=== PATIENT | female | born 1935 | race Caucasian/White ===

== ENCOUNTER 2022-10-14 06:55 | Inpatient (IN) | payer BC, MEDICARE ==
[~2022-10-14] VITALS: Ht 157.5 cm; Wt 74.1 kg
[2022-10-14] MEDS ORDERED: SODIUM CHLORIDE 0.9% 1,000 ML IV ONE (07:15)
[2022-10-14] MEDS ORDERED: VANCOMYCIN 1G PREMIX 200 ML IV ONE (07:15)
[2022-10-14] MEDS ORDERED: PIPERACILLIN/TAZ 3.375G PREMIX 50 ML IV ONE (07:15)
[2022-10-14 08:05] LABS: CHLORIDE 106 mEq/L (98-107)
[2022-10-14 08:08] LABS: HEMATOCRIT. 45.5 % (36.0-48.0); HEMOGLOBIN. 15.2 g/dL (12.0-16.0); MEAN CORPUSCULAR HEMOGLOBIN 29.8 pg (28.0-32.0); MEAN CORPUSCULAR VOLUME 89.4 fL (81.0-99.0); MEAN PLATELET VOLUME 8.3 fl (7.4-10.4); PLATELET 186 x1000/uL (130-400); RED BLOOD CELL COUNT 5.08 mill/uL (4.2-5.4); RED CELL DISTRIBUTION WIDTH 14.1 % (11.6-14.6)
[2022-10-14 08:09] LABS: INR 1.1; PROTHROMBIN TIME 11.9 sec (9.6-11.0)
[2022-10-14] MEDS ORDERED: VANCOMYCIN 1,000 MG in DEXT 5% WATER 250 ML IV NR (08:30)
[2022-10-14 09:47] LABS: PLATELET ESTIMATE NORMAL
[2022-10-14] MEDS ORDERED: LIDOCAINE HCL/PF 1% 10 MG/ML 5ML VIAL ONE (10:12)
[2022-10-14 11:32] LABS: CREATINE KINASE 49 IU/L (26-192)
[2022-10-14 12:00] VITALS: BP 130/49
[2022-10-14 12:02] VITALS: BP 130/49
[2022-10-14] MEDS ORDERED: NALOXONE HCL 0.4MG/ML VIAL IV PRN (12:30)
[2022-10-14] MEDS: MULTIVITAMINS,THER W-MINERALS TABLET PO SCH (12:30)
[2022-10-14] MEDS ORDERED: GUAIFENESIN 200MG/10ML SUGAR FREE UDC PO PRN (12:30)
[2022-10-14] MEDS ORDERED: ACETAMINOPHEN 325MG TABLET PO PRN (12:30)
[2022-10-14] MEDS ORDERED: DOCUSATE SODIUM 100MG CAPSULE PO PRN (12:30)
[2022-10-14] MEDS ORDERED: CLONIDINE 0.1MG TABLET PO PRN (12:30)
[2022-10-14] MEDS ORDERED: TRAMADOL 50MG TABLET PO PRN (12:30)
[2022-10-14] MEDS ORDERED: MAGNESIUM/ALUMINUM HYDROXIDE/SIMETHICONE 30ML UDC PO PRN (12:30)
[2022-10-14] MEDS ORDERED: ONDANSETRON HCL 4MG/2ML INJ IV PRN (12:30)
[2022-10-14] MEDS: THIAMINE HCL 100MG TABLET PO SCH (12:30)
[2022-10-14] MEDS: SODIUM CHLORIDE 0.9% 1,000 ML IV SCH (13:52)
[2022-10-14] MEDS: CEFTRIAXONE 1,000 MG in DEXTROSE 5% WATER 50 ML IV SCH (13:52)
[2022-10-14] MEDS: ENOXAPARIN 30MG/0.3ML SYR SUBCUT SCH (13:53)
[2022-10-14] MEDS: AZITHROMYCIN 500 MG in DEXT 5% WATER 250 ML IV SCH (14:40)
[2022-10-14 16:00] VITALS: BP 113/59
[2022-10-14 20:00] VITALS: BP 120/50
[2022-10-15] VITALS: BP 109/53
[2022-10-15] MEDS: SODIUM CHLORIDE 0.9% 1,000 ML IV SCH (03:56)
[2022-10-15 04:00] VITALS: BP 123/64
[2022-10-15 04:10] LABS: CLARITY URINE TURBID (CLEAR); COLOR URINE YELLOW (YELLOW); KETONES URINE NEGATIVE (NEGATIVE); LEUKOCYTE ESTERASE URINE 3+ (NEGATIVE); NITRITE URINE NEGATIVE (NEGATIVE); OCCULT BLOOD URINE 1+ (NEGATIVE); PROTEIN URINE 2+ (NEGATIVE); SPECIFIC GRAVITY URINE 1.022 (1.005-1.030)
[2022-10-15 07:53] LABS: HEMOGLOBIN. 13.1 g/dL (12.0-16.0); MEAN CORPUSCULAR HEMOGLOBIN 29.8 pg (28.0-32.0); MEAN CORPUSCULAR VOLUME 88.9 fL (81.0-99.0); MEAN PLATELET VOLUME 8.6 fl (7.4-10.4); PLATELET 123 x1000/uL (130-400); RED BLOOD CELL COUNT 4.38 mill/uL (4.2-5.4); RED CELL DISTRIBUTION WIDTH 13.8 % (11.6-14.6)
[2022-10-15 08:00] VITALS: BP 105/63
[2022-10-15] MEDS: MULTIVITAMINS,THER W-MINERALS TABLET PO SCH (08:34)
[2022-10-15] MEDS: THIAMINE HCL 100MG TABLET PO SCH (08:34)
[2022-10-15] MEDS: FOLIC ACID 1MG TABLET PO SCH (08:34)
[2022-10-15 08:46] LABS: CHLORIDE 118 mEq/L (98-107)
[2022-10-15 08:55] LABS: HDL CHOLESTEROL 14 mg/dL (40-59); LDL CHOLESTEROL 51 mg/dL (5-100)
[2022-10-15] MEDS: SODIUM CHLORIDE 0.45% 1,000 ML IV SCH (10:45)
[2022-10-15 12:00] VITALS: BP 126/62
[2022-10-15] MEDS: ENOXAPARIN 30MG/0.3ML SYR SUBCUT SCH (13:29)
[2022-10-15] MEDS: CEFTRIAXONE 1,000 MG in DEXTROSE 5% WATER 50 ML IV SCH (13:31)
[2022-10-15] MEDS: AZITHROMYCIN 500 MG in DEXT 5% WATER 250 ML IV SCH (13:32)
[2022-10-15 20:00] VITALS: BP 116/56
[2022-10-15 21:06] LABS: PLATELET ESTIMATE DECREASED
[2022-10-16] VITALS (7 sets, daily range): BP systolic 112–132; BP diastolic 52–84
[2022-10-16] MEDS: SODIUM CHLORIDE 0.45% 1,000 ML IV SCH ×2 (00:05→13:29)
[2022-10-16 09:21] LABS: CHLORIDE 114 mEq/L (98-107)
[2022-10-16] MEDS: MULTIVITAMINS,THER W-MINERALS TABLET PO SCH (09:22)
[2022-10-16] MEDS: THIAMINE HCL 100MG TABLET PO SCH (09:22)
[2022-10-16] MEDS: FOLIC ACID 1MG TABLET PO SCH (09:22)
[2022-10-16] MEDS ORDERED: LEVOFLOXACIN 500MG PREMIX 100 ML IV NR (13:00)
[2022-10-16] MEDS: ENOXAPARIN 30MG/0.3ML SYR SUBCUT SCH (13:30)
[2022-10-17] VITALS: BP 164/81
[2022-10-17 04:00] VITALS: BP 149/70
[2022-10-17 06:46] LABS: HEMATOCRIT. 38.3 % (36.0-48.0); HEMOGLOBIN. 13.1 g/dL (12.0-16.0); MEAN CORPUSCULAR HEMOGLOBIN 30.1 pg (28.0-32.0); MEAN CORPUSCULAR VOLUME 88.2 fL (81.0-99.0); MEAN PLATELET VOLUME 8.1 fl (7.4-10.4); PLATELET 123 x1000/uL (130-400); RED BLOOD CELL COUNT 4.35 mill/uL (4.2-5.4); RED CELL DISTRIBUTION WIDTH 13.8 % (11.6-14.6)
[2022-10-17 07:25] LABS: CHLORIDE 110 mEq/L (98-107)
[2022-10-17 08:00] VITALS: BP 126/67
[2022-10-17 08:16] LABS: PLATELET ESTIMATE SLIGHTLY DECREASED
[2022-10-17] MEDS: FOLIC ACID 1MG TABLET PO SCH (09:40)
[2022-10-17] MEDS: THIAMINE HCL 100MG TABLET PO SCH (09:40)
[2022-10-17] MEDS: MULTIVITAMINS,THER W-MINERALS TABLET PO SCH (09:40)
[2022-10-17] MEDS: POTASSIUM CHLORIDE 20MEQ TABLET SR PO SCH (09:42)
[2022-10-17 12:00] VITALS: BP 101/62
[2022-10-17] MEDS: ENOXAPARIN 30MG/0.3ML SYR SUBCUT SCH (13:37)
[2022-10-17] MEDS: LEVOFLOXACIN 250MG PREMIX 50 ML IV SCH (13:38)
[2022-10-17 16:00] VITALS: BP 133/68
[2022-10-17] MEDS: SODIUM CHLORIDE 0.45% 1,000 ML IV SCH (16:33)
[2022-10-17 20:00] VITALS: BP 115/67
[2022-10-18] VITALS: BP 137/89
[2022-10-18 04:00] VITALS: BP 112/58
[2022-10-18] MEDS: SODIUM CHLORIDE 0.45% 1,000 ML IV SCH ×2 (06:56→18:46)
[2022-10-18 07:15] LABS: BASOPHILS % 0.2 % (0.0-2.0); EOSINOPHILS % 0.9 % (0.0-5.0); HEMATOCRIT. 37.3 % (36.0-48.0); HEMOGLOBIN. 12.8 g/dL (12.0-16.0); MEAN CORPUSCULAR VOLUME 87.6 fL (81.0-99.0); MONOCYTES % 10.3 % (2.0-8.0); NEUTROPHILS % 80.6 % (40.0-76.0); PLATELET 147 x1000/uL (130-400); RED BLOOD CELL COUNT 4.26 mill/uL (4.2-5.4); RED CELL DISTRIBUTION WIDTH 13.7 % (11.6-14.6)
[2022-10-18 07:33] LABS: CHLORIDE 111 mEq/L (98-107)
[2022-10-18 08:00] VITALS: BP 152/120
[2022-10-18] MEDS: POTASSIUM CHLORIDE 20MEQ TABLET SR PO SCH (08:00)
[2022-10-18] MEDS: FOLIC ACID 1MG TABLET PO SCH (08:00)
[2022-10-18] MEDS: THIAMINE HCL 100MG TABLET PO SCH (08:00)
[2022-10-18] MEDS: MULTIVITAMINS,THER W-MINERALS TABLET PO SCH (08:00)
[2022-10-18 12:00] VITALS: BP 136/49
[2022-10-18] MEDS: ENOXAPARIN 30MG/0.3ML SYR SUBCUT SCH (12:26)
[2022-10-18] MEDS: LEVOFLOXACIN 250MG PREMIX 50 ML IV SCH (12:26)
[2022-10-18 16:00] VITALS: BP 135/73
[2022-10-18 20:00] VITALS: BP 117/61
[2022-10-19] VITALS: BP 115/66
[2022-10-19 04:00] VITALS: BP 118/71
[2022-10-19 08:00] VITALS: BP 146/78
[2022-10-19] MEDS: MULTIVITAMINS,THER W-MINERALS TABLET PO SCH (08:58)
[2022-10-19] MEDS: FOLIC ACID 1MG TABLET PO SCH (08:58)
[2022-10-19] MEDS: SODIUM CHLORIDE 0.45% 1,000 ML IV SCH ×2 (08:58→21:25)
[2022-10-19] MEDS: POTASSIUM CHLORIDE 20MEQ TABLET SR PO SCH (08:58)
[2022-10-19] MEDS: THIAMINE HCL 100MG TABLET PO SCH (08:58)
[2022-10-19 12:00] VITALS: BP 148/59
[2022-10-19] MEDS: ENOXAPARIN 30MG/0.3ML SYR SUBCUT SCH (12:49)
[2022-10-19] MEDS: LEVOFLOXACIN 250MG PREMIX 50 ML IV SCH (12:49)
[2022-10-19 16:00] VITALS: BP 127/72
[2022-10-19 20:00] VITALS: BP 132/62
[2022-10-20] VITALS: BP 146/86
[2022-10-20 04:00] VITALS: BP_SYST 129; BP_SYST 92; BP_DIAS 55; BP_DIAS 65
[2022-10-20 08:00] VITALS: BP 139/60
[2022-10-20] MEDS: THIAMINE HCL 100MG TABLET PO SCH (09:16)
[2022-10-20] MEDS: FOLIC ACID 1MG TABLET PO SCH (09:16)
[2022-10-20] MEDS: MULTIVITAMINS,THER W-MINERALS TABLET PO SCH (09:16)
[2022-10-20] MEDS: POTASSIUM CHLORIDE 20MEQ TABLET SR PO SCH (09:16)
[2022-10-20 12:00] VITALS: BP 124/58
[2022-10-20] MEDS: SODIUM CHLORIDE 0.45% 1,000 ML IV SCH (13:14)
[2022-10-20] MEDS: ENOXAPARIN 30MG/0.3ML SYR SUBCUT SCH (13:14)
[2022-10-20] MEDS: LEVOFLOXACIN 250MG PREMIX 50 ML IV SCH (13:14)
[2022-10-20 16:00] VITALS: BP 126/59
[2022-10-20 17:35] LABS: BASOPHILS % 0.3 % (0.0-2.0); EOSINOPHILS % 1.1 % (0.0-5.0); HEMATOCRIT. 37.8 % (36.0-48.0); HEMOGLOBIN. 12.7 g/dL (12.0-16.0); LYMPHOCYTES % 7.9 % (20.0-50.0); MEAN CORPUSCULAR HEMOGLOBIN 29.4 pg (28.0-32.0); MEAN CORPUSCULAR VOLUME 87.8 fL (81.0-99.0); MEAN PLATELET VOLUME 7.5 fl (7.4-10.4); NEUTROPHILS % 83.7 % (40.0-76.0); PLATELET 338 x1000/uL (130-400); RED BLOOD CELL COUNT 4.31 mill/uL (4.2-5.4); RED CELL DISTRIBUTION WIDTH 13.4 % (11.6-14.6)
[2022-10-20 17:40] LABS: CHLORIDE 111 mEq/L (98-107)
[2022-10-20 20:00] VITALS: BP 125/68
[2022-10-21] VITALS: BP 133/60
[2022-10-21 04:00] VITALS: BP 118/66
[2022-10-21 08:00] VITALS: BP 123/68
[2022-10-21] MEDS: MULTIVITAMINS,THER W-MINERALS TABLET PO SCH (08:47)
[2022-10-21] MEDS: POTASSIUM CHLORIDE 20MEQ TABLET SR PO SCH (08:47)
[2022-10-21] MEDS: THIAMINE HCL 100MG TABLET PO SCH (08:47)
[2022-10-21] MEDS: FOLIC ACID 1MG TABLET PO SCH (08:47)
[2022-10-21 12:00] VITALS: BP 113/70
[2022-10-21] MEDS: ENOXAPARIN 30MG/0.3ML SYR SUBCUT SCH (13:15)
[2022-10-21] MEDS: LEVOFLOXACIN 250MG PREMIX 50 ML IV SCH (13:15)
[2022-10-21 16:00] VITALS: BP 117/53
[2022-10-21] MEDS: SODIUM CHLORIDE 0.45% 1,000 ML IV SCH (17:24)
[2022-10-21 20:00] VITALS: BP 110/51
[2022-10-22] VITALS: BP 144/85
[2022-10-22] MEDS: SODIUM CHLORIDE 0.45% 1,000 ML IV SCH ×2 (02:23→17:27)
[2022-10-22 04:00] VITALS: BP_SYST 130; BP_SYST 143; BP_DIAS 62; BP_DIAS 70
[2022-10-22 08:00] VITALS: BP 122/65
[2022-10-22] MEDS: POTASSIUM CHLORIDE 20MEQ TABLET SR PO SCH (09:43)
[2022-10-22] MEDS: MULTIVITAMINS,THER W-MINERALS TABLET PO SCH (09:43)
[2022-10-22] MEDS: FOLIC ACID 1MG TABLET PO SCH (09:43)
[2022-10-22] MEDS: THIAMINE HCL 100MG TABLET PO SCH (09:43)
[2022-10-22] MEDS: ENOXAPARIN 30MG/0.3ML SYR SUBCUT SCH (17:26)
[2022-10-22 20:00] VITALS: BP 123/60
[2022-10-23] VITALS: BP 102/84
[2022-10-23 01:33] VITALS: BP 102/84
[2022-10-23 04:00] VITALS: BP 122/67
[2022-10-23] MEDS: SODIUM CHLORIDE 0.45% 1,000 ML IV SCH (05:39)
[2022-10-23] MEDS: THIAMINE HCL 100MG TABLET PO SCH (09:20)
[2022-10-23] MEDS: MULTIVITAMINS,THER W-MINERALS TABLET PO SCH (09:20)
[2022-10-23] MEDS: FOLIC ACID 1MG TABLET PO SCH (09:20)
[2022-10-23] MEDS: POTASSIUM CHLORIDE 20MEQ TABLET SR PO SCH (09:21)
[2022-10-23 12:00] VITALS: BP 124/60
[2022-10-23] MEDS: ENOXAPARIN 30MG/0.3ML SYR SUBCUT SCH (13:36)
[2022-10-23 14:00] VITALS: BP 124/50
[2022-10-23 20:00] VITALS: BP 129/56
[2022-10-24] VITALS: BP 132/46
[2022-10-24 04:00] VITALS: BP_SYST 104; BP_SYST 134; BP_DIAS 58; BP_DIAS 75
[2022-10-24 08:00] VITALS: BP 124/48
[2022-10-24] MEDS: POTASSIUM CHLORIDE 20MEQ TABLET SR PO SCH (08:47)
[2022-10-24] MEDS: THIAMINE HCL 100MG TABLET PO SCH (08:47)
[2022-10-24] MEDS: FOLIC ACID 1MG TABLET PO SCH (08:47)
[2022-10-24] MEDS: SODIUM CHLORIDE 0.45% 1,000 ML IV SCH ×2 (08:47→21:46)
[2022-10-24] MEDS: MULTIVITAMINS,THER W-MINERALS TABLET PO SCH (08:47)
[2022-10-24 12:00] VITALS: BP 132/52
[2022-10-24] MEDS: ENOXAPARIN 30MG/0.3ML SYR SUBCUT SCH (12:37)
[2022-10-24 16:00] VITALS: BP 104/75
[2022-10-24 20:00] VITALS: BP 118/54
[2022-10-25] VITALS: BP 137/72
[2022-10-25 04:00] VITALS: BP 130/55
[2022-10-25 08:00] VITALS: BP 119/59
[2022-10-25] MEDS: SODIUM CHLORIDE 0.45% 1,000 ML IV SCH (09:54)
[2022-10-25] MEDS: MULTIVITAMINS,THER W-MINERALS TABLET PO SCH (09:54)
[2022-10-25] MEDS: POTASSIUM CHLORIDE 20MEQ TABLET SR PO SCH (09:54)
[2022-10-25] MEDS: FOLIC ACID 1MG TABLET PO SCH (09:54)
[2022-10-25] MEDS: THIAMINE HCL 100MG TABLET PO SCH (09:54)
[2022-10-25 12:00] VITALS: BP 130/60
[2022-10-25] MEDS: ENOXAPARIN 30MG/0.3ML SYR SUBCUT SCH (13:13)
[2022-10-25 16:00] VITALS: BP 115/51
[2022-10-25 20:00] VITALS: BP 113/44
[2022-10-26] VITALS: BP 108/48
[2022-10-26] MEDS: SODIUM CHLORIDE 0.45% 1,000 ML IV SCH (00:05)
[2022-10-26 04:00] VITALS: BP 108/46
[2022-10-26 06:59] LABS: BASOPHILS % 0.6 % (0.0-2.0); EOSINOPHILS % 1.4 % (0.0-5.0); HEMATOCRIT. 39.9 % (36.0-48.0); LYMPHOCYTES % 13.4 % (20.0-50.0); MEAN CORPUSCULAR HEMOGLOBIN 28.7 pg (28.0-32.0); MEAN CORPUSCULAR VOLUME 87.9 fL (81.0-99.0); MEAN PLATELET VOLUME 7.1 fl (7.4-10.4); MONOCYTES % 7.1 % (2.0-8.0); NEUTROPHILS % 77.5 % (40.0-76.0); PLATELET 486 x1000/uL (130-400); RED BLOOD CELL COUNT 4.54 mill/uL (4.2-5.4); RED CELL DISTRIBUTION WIDTH 13.9 % (11.6-14.6)
[2022-10-26 08:00] VITALS: BP 135/57
[2022-10-26 08:22] LABS: CHLORIDE 110 mEq/L (98-107)
[2022-10-26] MEDS: POTASSIUM CHLORIDE 20MEQ TABLET SR PO SCH (08:58)
[2022-10-26] MEDS: THIAMINE HCL 100MG TABLET PO SCH (08:58)
[2022-10-26] MEDS: MULTIVITAMINS,THER W-MINERALS TABLET PO SCH (08:58)
[2022-10-26] MEDS: FOLIC ACID 1MG TABLET PO SCH (08:58)
[2022-10-26 12:00] VITALS: BP 109/49
[2022-10-26] MEDS: ENOXAPARIN 30MG/0.3ML SYR SUBCUT SCH (14:24)
[2022-10-26 16:00] VITALS: BP_SYST 110; BP_SYST 115; BP_DIAS 52; BP_DIAS 53
[2022-10-26 20:00] VITALS: BP 108/46
[2022-10-27] VITALS: BP 109/49
[2022-10-27 04:00] VITALS: BP 115/46
[2022-10-27 08:00] VITALS: BP 99/49
[2022-10-27] MEDS: POTASSIUM CHLORIDE 20MEQ TABLET SR PO SCH (08:50)
[2022-10-27] MEDS: THIAMINE HCL 100MG TABLET PO SCH (08:50)
[2022-10-27] MEDS: MULTIVITAMINS,THER W-MINERALS TABLET PO SCH (08:50)
[2022-10-27] MEDS: FOLIC ACID 1MG TABLET PO SCH (08:50)
[2022-10-27] MEDS: ENOXAPARIN 30MG/0.3ML SYR SUBCUT SCH (12:12)
[2022-10-27 12:17] VITALS: BP 106/35
[2022-10-27 16:44] VITALS: BP 111/40
[2022-10-27 20:00] VITALS: BP 103/47
[2022-10-28] VITALS: BP 100/40
[2022-10-28 04:00] VITALS: BP 122/51
[2022-10-28 08:00] VITALS: BP 111/46
[2022-10-28] MEDS ORDERED: ENOXAPARIN 40MG/0.4ML SYR SUBCUT SCH (09:00)
[2022-10-28] MEDS: MULTIVITAMINS,THER W-MINERALS TABLET PO SCH (09:25)
[2022-10-28] MEDS: THIAMINE HCL 100MG TABLET PO SCH (09:25)
[2022-10-28] MEDS: FOLIC ACID 1MG TABLET PO SCH (09:26)
[2022-10-28] MEDS: POTASSIUM CHLORIDE 20MEQ TABLET SR PO SCH (09:26)
[2022-10-28 20:00] VITALS: BP 99/42
[2022-10-28] MEDS: NYSTATIN 100,000 UNITS/GM CREAM 15GM TOP SCH (21:19)
[2022-10-29] VITALS: BP 104/38
[2022-10-29 04:00] VITALS: BP 117/48
[2022-10-29 08:00] VITALS: BP 118/60
[2022-10-29] MEDS: POTASSIUM CHLORIDE 20MEQ TABLET SR PO SCH (08:28)
[2022-10-29] MEDS: THIAMINE HCL 100MG TABLET PO SCH (08:28)
[2022-10-29] MEDS: MULTIVITAMINS,THER W-MINERALS TABLET PO SCH (08:28)
[2022-10-29] MEDS: FOLIC ACID 1MG TABLET PO SCH (08:28)
[2022-10-29] MEDS: ENOXAPARIN 30MG/0.3ML SYR SUBCUT SCH (08:29)
[2022-10-29 12:00] VITALS: BP 105/53
[2022-10-29] MEDS: NYSTATIN 100,000 UNITS/GM CREAM 15GM TOP SCH ×2 (14:22→21:19)
[2022-10-29 16:00] VITALS: BP 119/49
[2022-10-29 20:16] VITALS: BP 113/50
[2022-10-30] VITALS: BP 115/43
[2022-10-30 04:00] VITALS: BP 120/50
[2022-10-30 08:28] VITALS: BP 108/51
[2022-10-30] MEDS: MULTIVITAMINS,THER W-MINERALS TABLET PO SCH (09:56)
[2022-10-30] MEDS: THIAMINE HCL 100MG TABLET PO SCH (09:56)
[2022-10-30] MEDS: FOLIC ACID 1MG TABLET PO SCH (09:56)
[2022-10-30] MEDS: ENOXAPARIN 30MG/0.3ML SYR SUBCUT SCH (09:57)
[2022-10-30] MEDS: POTASSIUM CHLORIDE 20MEQ TABLET SR PO SCH (09:58)
[2022-10-30] MEDS: NYSTATIN 100,000 UNITS/GM CREAM 15GM TOP SCH (09:59)
[2022-10-30 11:50] VITALS: BP 100/77
[2022-10-30] MEDS ORDERED: LACTULOSE 20G/30ML UDC PO NR (12:30)
[2022-10-30] MEDS ORDERED: NA PHOS,M-B/NA PHOS,DI-BA ENEMA 118ML PR PRN (12:30)
[2022-10-30 15:49] VITALS: BP 100/77
[2022-10-30 15:53] VITALS: BP 111/46
== END 2022-10-30 16:45 | DRG 871 ==
LOC: ER 07:04 → 7EST 10:33 → EDBEDREQ 10:36 → EDBEDREQTM 10:36 → ENRESERV 10:53
PROVIDERS: ADMIT Hospitalist; ATTEND Hospitalist
PROC: 02H633Z Insertion of Infusion Device into Right Atrium, Percutaneous Approach (ICD-10-PCS; principal; 2022-10-14)
PROC: B548ZZA Ultrasonography of Superior Vena Cava, Guidance (ICD-10-PCS; 2022-10-14)
DX: A41.59 Other Gram-negative sepsis (principal); E43 Unspecified severe protein-calorie malnutrition; J18.9 Pneumonia, unspecified organism; G93.40 Encephalopathy, unspecified; N17.9 Acute kidney failure, unspecified; N39.0 Urinary tract infection, site not specified; R73.9 Hyperglycemia, unspecified; Z68.29 Body mass index [BMI] 29.0-29.9, adult
CPT/HCPCS: 36415; 36573; 71045; 80048; 80053; 80061; 81003; 82140; 82550; 83605; 83735; 84145; 84484; 85025; 87077; 87186; 93005; 93970; 97165; 99291; A6261; C1725; J0456; J0696; J1650; J1956; J2543; J3370; J3490; J7030; J7060

== ENCOUNTER 2022-12-15 20:43 | Inpatient (IN) | payer BC ==
[~2022-12-15] VITALS: Ht 165.1 cm; Wt 64.4 kg
[2022-12-15 22:07] LABS: BASOPHILS % 0.4 % (0.0-2.0); EOSINOPHILS % 0.9 % (0.0-5.0); HEMATOCRIT. 43.6 % (36.0-48.0); HEMOGLOBIN. 14.6 g/dL (12.0-16.0); LYMPHOCYTES % 14.7 % (20.0-50.0); MEAN CORPUSCULAR HEMOGLOBIN 29.6 pg (28.0-32.0); MEAN CORPUSCULAR VOLUME 88.4 fL (81.0-99.0); MEAN PLATELET VOLUME 7.7 fl (7.4-10.4); MONOCYTES % 9.1 % (2.0-8.0); NEUTROPHILS % 74.9 % (40.0-76.0); PLATELET 304 x1000/uL (130-400); RED BLOOD CELL COUNT 4.93 mill/uL (4.2-5.4); RED CELL DISTRIBUTION WIDTH 14.9 % (11.6-14.6)
[2022-12-15 22:10] LABS: CHLORIDE 108 mEq/L (98-107)
[2022-12-15 22:12] LABS: PROTHROMBIN TIME 10.3 sec (9.6-11.0)
[2022-12-15 22:19] LABS: CREATINE KINASE 655 IU/L (26-192)
[2022-12-15] MEDS ORDERED: SODIUM CHLORIDE 0.9% 500 ML IV ONE (22:45)
[2022-12-16] MEDS ORDERED: CLONIDINE 0.1MG TABLET PO PRN (04:45)
[2022-12-16] MEDS ORDERED: ONDANSETRON HCL 4MG/2ML INJ IV PRN (04:45)
[2022-12-16] MEDS ORDERED: GUAIFENESIN 200MG/10ML SUGAR FREE UDC PO PRN (04:45)
[2022-12-16] MEDS ORDERED: IPRATROPIUM/ALBUTEROL 0.5-3(2.5)MG/3ML NEB HHN PRN (04:45)
[2022-12-16] MEDS ORDERED: ACETAMINOPHEN 325MG TABLET PO PRN ×2 (04:45)
[2022-12-16] MEDS ORDERED: DOCUSATE SODIUM 100MG CAPSULE PO PRN (04:45)
[2022-12-16] MEDS ORDERED: CEFTRIAXONE 1 G PREMIX 50 ML IV SCH (06:00)
[2022-12-16] MEDS ORDERED: VANCOMYCIN 1G PREMIX 200 ML IV NR ×2 (06:15→06:30)
[2022-12-16 08:48] LABS: FOLIC ACID (FOLATE) SERUM 19.9 ng/mL (>5.38)
[2022-12-16 11:35] VITALS: BP 99/59
[2022-12-16 13:15] VITALS: BP 99/59
[2022-12-16 19:39] VITALS: BP 117/69
[2022-12-16] MEDS: FAMOTIDINE 20MG TABLET PO SCH (22:03)
[2022-12-16 23:39] VITALS: BP 106/46
[2022-12-17] MEDS: CEFTRIAXONE 1,000 MG in DEXTROSE 5% WATER 50 ML IV SCH (05:58)
[2022-12-17 06:50] LABS: BASOPHILS % 0.7 % (0.0-2.0); EOSINOPHILS % 4.2 % (0.0-5.0); HEMATOCRIT. 39.5 % (36.0-48.0); HEMOGLOBIN. 13.2 g/dL (12.0-16.0); MEAN CORPUSCULAR HEMOGLOBIN 29.7 pg (28.0-32.0); MEAN CORPUSCULAR VOLUME 88.5 fL (81.0-99.0); MEAN PLATELET VOLUME 7.9 fl (7.4-10.4); MONOCYTES % 9.7 % (2.0-8.0); NEUTROPHILS % 58.4 % (40.0-76.0); PLATELET 277 x1000/uL (130-400); RED BLOOD CELL COUNT 4.46 mill/uL (4.2-5.4); RED CELL DISTRIBUTION WIDTH 14.8 % (11.6-14.6)
[2022-12-17 07:18] LABS: CHLORIDE 110 mEq/L (98-107); HDL CHOLESTEROL 53 mg/dL (40-59); LDL CHOLESTEROL 92 mg/dL (5-100); T4 FREE 1.18 ng/dL (0.76-1.46)
[2022-12-17 08:06] VITALS: BP 136/62
[2022-12-17 11:24] LABS: CLARITY URINE TURBID (CLEAR); COLOR URINE YELLOW (YELLOW); KETONES URINE NEGATIVE (NEGATIVE); LEUKOCYTE ESTERASE URINE 3+ (NEGATIVE); NITRITE URINE POSITIVE (NEGATIVE); OCCULT BLOOD URINE 2+ (NEGATIVE); PH URINE 5.5 (4.5-8.0); PROTEIN URINE 1+ (NEGATIVE); SPECIFIC GRAVITY URINE 1.016 (1.005-1.030); UROBILINOGEN URINE 0.2 E.U./dL (0.2-1.0)
[2022-12-17 12:00] VITALS: BP 144/71
[2022-12-17] MEDS ORDERED: VANCOMYCIN 750MG PREMIX 150 ML IV SCH (12:00)
[2022-12-17 20:00] VITALS: BP 115/49
[2022-12-17] MEDS: FAMOTIDINE 20MG TABLET PO SCH (21:31)
[2022-12-18] VITALS (7 sets, daily range): BP systolic 105–146; BP diastolic 59–86
[2022-12-18 05:50] LABS: CHLORIDE 108 mEq/L (98-107)
[2022-12-18 05:58] LABS: PHOSPHORUS 3.7 mg/dL (2.5-4.9)
[2022-12-18 06:20] LABS: BASOPHILS % 0.5 % (0.0-2.0); EOSINOPHILS % 3.5 % (0.0-5.0); HEMATOCRIT. 37.7 % (36.0-48.0); HEMOGLOBIN. 12.7 g/dL (12.0-16.0); LYMPHOCYTES % 23.9 % (20.0-50.0); MEAN CORPUSCULAR HEMOGLOBIN 29.7 pg (28.0-32.0); MEAN CORPUSCULAR VOLUME 88.2 fL (81.0-99.0); MEAN PLATELET VOLUME 7.8 fl (7.4-10.4); MONOCYTES % 8.9 % (2.0-8.0); NEUTROPHILS % 63.2 % (40.0-76.0); PLATELET 270 x1000/uL (130-400); RED BLOOD CELL COUNT 4.28 mill/uL (4.2-5.4); RED CELL DISTRIBUTION WIDTH 14.9 % (11.6-14.6)
[2022-12-18] MEDS: CEFTRIAXONE 1,000 MG in DEXTROSE 5% WATER 50 ML IV SCH (06:28)
[2022-12-18] MEDS ORDERED: IPRATROPIUM BROMIDE (0.02%) 0.5MG/2.5ML NEB HHN PRN (11:15)
[2022-12-18] MEDS ORDERED: ALBUTEROL (0.083%) 2.5MG/3ML NEB HHN PRN (11:15)
[2022-12-18] MEDS: FAMOTIDINE 20MG TABLET PO SCH (21:18)
[2022-12-19] MEDS: CEFTRIAXONE 1,000 MG in DEXTROSE 5% WATER 50 ML IV SCH (06:31)
[2022-12-19 08:00] VITALS: BP 119/56
[2022-12-19 20:00] VITALS: BP 129/69
[2022-12-19] MEDS: FAMOTIDINE 20MG TABLET PO SCH (21:31)
[2022-12-20] MEDS: CEFTRIAXONE 1,000 MG in DEXTROSE 5% WATER 50 ML IV SCH (05:56)
[2022-12-20 07:38] LABS: HEMATOCRIT 39.8 % (36.0-48.0); MEAN CORPUSCULAR HEMOGLOBIN 30.8 pg (28.0-32.0); PLATELET 281 x1000/uL (130-400); RED BLOOD CELL COUNT 4.52 mill/uL (4.2-5.4); RED CELL DISTRIBUTION WIDTH 14.7 % (11.6-14.6)
[2022-12-20 08:00] VITALS: BP 144/58
[2022-12-20 08:14] LABS: CHLORIDE 105 mEq/L (98-107)
[2022-12-20 08:18] LABS: PHOSPHORUS 2.4 mg/dL (2.5-4.9)
[2022-12-20] MEDS: MAGNESIUM/ALUMINUM HYDROXIDE/SIMETHICONE 30ML UDC PO PRN (09:34)
[2022-12-20 14:00] VITALS: BP 123/67
[2022-12-20 16:00] VITALS: BP 115/70
[2022-12-20 20:04] VITALS: BP 136/51
[2022-12-20] MEDS: FAMOTIDINE 20MG TABLET PO SCH (22:07)
[2022-12-21] MEDS: CEFTRIAXONE 1,000 MG in DEXTROSE 5% WATER 50 ML IV SCH (05:44)
[2022-12-21 07:10] LABS: BASOPHILS % 0.5 % (0.0-2.0); EOSINOPHILS % 2.4 % (0.0-5.0); HEMATOCRIT. 39.3 % (36.0-48.0); HEMOGLOBIN. 13.3 g/dL (12.0-16.0); LYMPHOCYTES % 26.1 % (20.0-50.0); MEAN CORPUSCULAR VOLUME 88.8 fL (81.0-99.0); MEAN PLATELET VOLUME 7.7 fl (7.4-10.4); PLATELET 296 x1000/uL (130-400); RED BLOOD CELL COUNT 4.42 mill/uL (4.2-5.4); RED CELL DISTRIBUTION WIDTH 14.7 % (11.6-14.6)
[2022-12-21 07:35] LABS: CHLORIDE 107 mEq/L (98-107)
[2022-12-21 08:00] VITALS: BP 146/63
[2022-12-21] MEDS: MAGNESIUM/ALUMINUM HYDROXIDE/SIMETHICONE 30ML UDC PO PRN (15:17)
[2022-12-21 20:00] VITALS: BP 109/53
[2022-12-21] MEDS: FAMOTIDINE 20MG TABLET PO SCH (21:22)
[2022-12-22] VITALS: BP 147/72
[2022-12-22 00:30] VITALS: BP 147/72
[2022-12-22 04:00] VITALS: BP_SYST 107; BP_SYST 137; BP_DIAS 67
[2022-12-22 08:00] VITALS: BP 126/68
[2022-12-22 20:00] VITALS: BP 113/38
[2022-12-22] MEDS: NITROFURANTOIN 100MG M/M CAPSULE PO SCH (22:04)
[2022-12-22] MEDS: FAMOTIDINE 20MG TABLET PO SCH (22:04)
[2022-12-23 04:00] VITALS: BP 120/59
[2022-12-23 07:06] LABS: CHLORIDE 108 mEq/L (98-107)
[2022-12-23 07:13] LABS: BASOPHILS % 0.5 % (0.0-2.0); EOSINOPHILS % 3.4 % (0.0-5.0); HEMATOCRIT. 40.2 % (36.0-48.0); HEMOGLOBIN. 13.5 g/dL (12.0-16.0); LYMPHOCYTES % 31.3 % (20.0-50.0); MEAN CORPUSCULAR HEMOGLOBIN 30.1 pg (28.0-32.0); MEAN CORPUSCULAR VOLUME 89.8 fL (81.0-99.0); MEAN PLATELET VOLUME 7.7 fl (7.4-10.4); MONOCYTES % 8.7 % (2.0-8.0); NEUTROPHILS % 56.1 % (40.0-76.0); PLATELET 288 x1000/uL (130-400); RED BLOOD CELL COUNT 4.48 mill/uL (4.2-5.4); RED CELL DISTRIBUTION WIDTH 14.8 % (11.6-14.6)
[2022-12-23 08:00] VITALS: BP 151/60
[2022-12-23] MEDS: NITROFURANTOIN 100MG M/M CAPSULE PO SCH ×2 (08:10→22:00)
[2022-12-23 12:00] VITALS: BP 128/67
[2022-12-23 16:00] VITALS: BP 131/63
[2022-12-23 19:39] VITALS: BP 115/50
[2022-12-23] MEDS: FAMOTIDINE 20MG TABLET PO SCH (21:00)
[2022-12-23 23:53] VITALS: BP 112/64
[2022-12-24 04:00] VITALS: BP 121/56
[2022-12-24 06:15] LABS: BASOPHILS % 0.7 % (0.0-2.0); EOSINOPHILS % 2.2 % (0.0-5.0); HEMATOCRIT. 37.8 % (36.0-48.0); HEMOGLOBIN. 12.9 g/dL (12.0-16.0); LYMPHOCYTES % 28.6 % (20.0-50.0); MEAN CORPUSCULAR HEMOGLOBIN 30.1 pg (28.0-32.0); MEAN CORPUSCULAR VOLUME 88.1 fL (81.0-99.0); MEAN PLATELET VOLUME 7.6 fl (7.4-10.4); MONOCYTES % 8.4 % (2.0-8.0); NEUTROPHILS % 60.1 % (40.0-76.0); PLATELET 289 x1000/uL (130-400); RED BLOOD CELL COUNT 4.29 mill/uL (4.2-5.4)
[2022-12-24 06:18] LABS: CHLORIDE 106 mEq/L (98-107)
[2022-12-24] MEDS: NITROFURANTOIN 100MG M/M CAPSULE PO SCH ×2 (08:59→21:04)
[2022-12-24 20:00] VITALS: BP 110/60
[2022-12-24] MEDS: FAMOTIDINE 20MG TABLET PO SCH (21:04)
[2022-12-25] VITALS: BP 117/70
[2022-12-25 04:00] VITALS: BP 148/82
[2022-12-25 08:00] VITALS: BP 125/80
[2022-12-25] MEDS: NITROFURANTOIN 100MG M/M CAPSULE PO SCH ×2 (09:04→22:09)
[2022-12-25 12:00] VITALS: BP 101/45
[2022-12-25 16:00] VITALS: BP 104/44
[2022-12-25 20:00] VITALS: BP 111/50
[2022-12-25] MEDS: FAMOTIDINE 20MG TABLET PO SCH (22:09)
[2022-12-26] VITALS: BP 111/50
[2022-12-26 04:00] VITALS: BP 122/72
[2022-12-26 08:00] VITALS: BP 107/82
[2022-12-26] MEDS: NITROFURANTOIN 100MG M/M CAPSULE PO SCH ×2 (08:37→20:44)
[2022-12-26 11:57] VITALS: BP 105/43
[2022-12-26 16:00] VITALS: BP 110/48
[2022-12-26] MEDS: FAMOTIDINE 20MG TABLET PO SCH (20:44)
[2022-12-27] VITALS: BP 125/57
[2022-12-27 04:00] VITALS: BP 115/54
[2022-12-27 08:00] VITALS: BP 115/37
[2022-12-27 08:13] LABS: BASOPHILS % 0.5 % (0.0-2.0); EOSINOPHILS % 2.7 % (0.0-5.0); HEMATOCRIT. 39.5 % (36.0-48.0); HEMOGLOBIN. 13.1 g/dL (12.0-16.0); LYMPHOCYTES % 28.8 % (20.0-50.0); MEAN CORPUSCULAR HEMOGLOBIN 29.7 pg (28.0-32.0); MEAN CORPUSCULAR VOLUME 89.7 fL (81.0-99.0); MEAN PLATELET VOLUME 7.8 fl (7.4-10.4); PLATELET 287 x1000/uL (130-400); RED CELL DISTRIBUTION WIDTH 15.2 % (11.6-14.6)
[2022-12-27 08:21] LABS: CHLORIDE 108 mEq/L (98-107)
[2022-12-27] MEDS: NITROFURANTOIN 100MG M/M CAPSULE PO SCH ×2 (11:21→21:00)
[2022-12-27 12:00] VITALS: BP 117/58
[2022-12-27 15:52] VITALS: BP 122/63
[2022-12-27 20:00] VITALS: BP 117/50
[2022-12-27] MEDS: FAMOTIDINE 20MG TABLET PO SCH (21:00)
[2022-12-28 04:00] VITALS: BP 160/66
[2022-12-28 08:00] VITALS: BP 118/51
[2022-12-28] MEDS: NITROFURANTOIN 100MG M/M CAPSULE PO SCH ×2 (08:37→20:35)
[2022-12-28 12:00] VITALS: BP 124/47
[2022-12-28 16:00] VITALS: BP 107/50
[2022-12-28 20:00] VITALS: BP 132/68
[2022-12-28] MEDS: FAMOTIDINE 20MG TABLET PO SCH (20:35)
[2022-12-29] VITALS: BP 113/50
[2022-12-29 04:00] VITALS: BP 115/50
[2022-12-29 08:00] VITALS: BP 120/51
[2022-12-29] MEDS: NITROFURANTOIN 100MG M/M CAPSULE PO SCH (09:27)
[2022-12-29 12:00] VITALS: BP 112/42
[2022-12-29 16:00] VITALS: BP 122/51
[2022-12-29 20:00] VITALS: BP 111/52
[2022-12-29] MEDS: FAMOTIDINE 20MG TABLET PO SCH (21:28)
[2022-12-30] VITALS: BP 117/50
[2022-12-30 04:00] VITALS: BP 135/57
[2022-12-30 06:31] LABS: BASOPHILS % 0.7 % (0.0-2.0); EOSINOPHILS % 3.6 % (0.0-5.0); HEMATOCRIT. 39.3 % (36.0-48.0); HEMOGLOBIN. 13.6 g/dL (12.0-16.0); LYMPHOCYTES % 30.3 % (20.0-50.0); MEAN CORPUSCULAR HEMOGLOBIN 30.7 pg (28.0-32.0); MEAN CORPUSCULAR VOLUME 88.9 fL (81.0-99.0); MEAN PLATELET VOLUME 7.6 fl (7.4-10.4); MONOCYTES % 8.7 % (2.0-8.0); NEUTROPHILS % 56.7 % (40.0-76.0); PLATELET 275 x1000/uL (130-400); RED BLOOD CELL COUNT 4.42 mill/uL (4.2-5.4); RED CELL DISTRIBUTION WIDTH 15.1 % (11.6-14.6)
[2022-12-30 07:56] LABS: CHLORIDE 104 mEq/L (98-107)
[2022-12-30 08:00] VITALS: BP 121/48
[2022-12-30 12:00] VITALS: BP 130/57
[2022-12-30 16:00] VITALS: BP 105/22
[2022-12-30 20:00] VITALS: BP 119/42
[2022-12-30] MEDS: FAMOTIDINE 20MG TABLET PO SCH ×2 (21:00→21:28)
[2022-12-31] VITALS: BP 111/35
[2022-12-31 04:00] VITALS: BP 126/53
[2022-12-31 08:00] VITALS: BP 93/60
[2022-12-31 12:00] VITALS: BP 114/44
[2022-12-31 16:00] VITALS: BP 123/49
[2022-12-31 20:00] VITALS: BP 118/39
[2022-12-31] MEDS: FAMOTIDINE 20MG TABLET PO SCH (20:41)
[2023-01-01] VITALS: BP 115/49
[2023-01-01 04:00] VITALS: BP 122/51
[2023-01-01 08:00] VITALS: BP 154/63
[2023-01-01 12:00] VITALS: BP 112/44
[2023-01-01 16:00] VITALS: BP 123/67
[2023-01-01 20:46] VITALS: BP 123/67
[2023-01-01] MEDS: FAMOTIDINE 20MG TABLET PO SCH (21:12)
== END 2023-01-01 21:55 | DRG 871 ==
LOC: ER 20:43 → MICUSO 23:01 → 4WST 12-16 12:28 → 6EST 12-24 02:24
PROVIDERS: ADMIT Hospitalist; ATTEND Hospitalist
DX: A41.9 Sepsis, unspecified organism (principal); G92.8 Other toxic encephalopathy; N39.0 Urinary tract infection, site not specified; E46 Unspecified protein-calorie malnutrition; J98.11 Atelectasis; F03.90 Unspecified dementia, unspecified severity, without behavioral disturbance, psychotic disturbance, mood disturbance, and anxiety; R62.7 Adult failure to thrive; Z87.01 Personal history of pneumonia (recurrent); Z68.23 Body mass index [BMI] 23.0-23.9, adult; Z20.822 Contact with and (suspected) exposure to COVID-19; W18.30XA Fall on same level, unspecified, initial encounter; Y93.89 Activity, other specified; Y92.89 Other specified places as the place of occurrence of the external cause; Y99.8 Other external cause status
CPT/HCPCS: 36415; 71045; 80048; 80053; 80061; 81003; 82140; 82550; 82607; 82746; 83605; 83735; 83880; 84100; 84134; 84145; 84439; 84443; 84484; 85025; 85027; 87077; 87186; 87426; 93005; 93306; 97110; 97116; 97162; 97166; 97530; 97535; 99285; A6261; C1893; J0696; J3370; J7040; J7060

== ENCOUNTER 2024-03-23 16:30 | Inpatient (IN) | payer BC, OTHER, MEDICARE ==
[~2024-03-23] VITALS: Ht 152.4 cm; Wt 44.5 kg
[~2024-03-23 16:30] MED LIST: TRAM50TA3 MT
[2024-03-23] MEDS: SODIUM CHLORIDE 0.9% 1,000 ML IV ONE (17:28)
[2024-03-23 17:39] LABS: BASOPHILS % 0.8 % (0.0-2.0); EOSINOPHILS % 2.5 % (0.0-5.0); HEMATOCRIT. 46.7 % (36.0-48.0); HEMOGLOBIN. 15.5 g/dL (12.0-16.0); LYMPHOCYTES % 18.2 % (20.0-50.0); MEAN CORPUSCULAR HEMOGLOBIN 29.7 pg (28.0-32.0); MEAN CORPUSCULAR HGB CONC 33.3 g/dL (31.0-37.0); MEAN CORPUSCULAR VOLUME 89.1 fL (81.0-99.0); MEAN PLATELET VOLUME 8.3 fl (7.4-10.4); MONOCYTES % 5.9 % (2.0-8.0); NEUTROPHILS % 72.6 % (40.0-76.0); PLATELET 250 x1000/uL (130-400); RED BLOOD CELL COUNT 5.23 mill/uL (4.2-5.4); RED CELL DISTRIBUTION WIDTH 13.8 % (11.6-14.6); WHITE BLOOD COUNT 8.2 x1000/uL (4.5-11.0)
[2024-03-23 17:43] LABS: CHLORIDE 103 mEq/L (98-107); POTASSIUM 4.4 mEq/L (3.5-5.1); SODIUM 135 mEq/L (136-145)
[2024-03-23 17:44] LABS: CALCIUM 9.4 mg/dL (8.7-10.4); CARBON DIOXIDE 26 mEq/L (21-32)
[2024-03-23 17:49] LABS: CREATININE 1.1 mg/dL (0.6-1.0); GLUCOSE 115 mg/dL (70-105); UREA NITROGEN BLOOD 13 mg/dL (9-23)
[2024-03-23 17:50] LABS: LACTIC ACID 2.9 mmol/L (0.4-2.0); TROPONIN I HIGH SENSITIVITY 5 ng/L (3.0-34)
[2024-03-23 17:51] LABS: ALANINE AMINOTRANSFERASE < 7 IU/L (10-49); ASPARTATE AMINOTRANSFERASE 15 IU/L (<34); BILIRUBIN TOTAL 0.4 mg/dL (0.1-1.0); PROTEIN TOTAL 6.8 g/dL (6.0-8.3)
[2024-03-23 18:36] LABS: CLARITY URINE CLOUDY (CLEAR); COLOR URINE YELLOW (YELLOW); GLUCOSE URINE NEGATIVE (NEGATIVE); KETONES URINE NEGATIVE (NEGATIVE); LEUKOCYTE ESTERASE URINE 2+ (NEGATIVE); NITRITE URINE POSITIVE (NEGATIVE); OCCULT BLOOD URINE NEGATIVE (NEGATIVE); PROTEIN URINE NEGATIVE (NEGATIVE); UROBILINOGEN URINE 0.2 E.U./dL (0.2-1.0)
[2024-03-23 19:18] LABS: BACTERIA URINE 4+; RBC URINE 0-2 /hpf (0-2); SQUAMOUS EPITHELIAL CELL URINE 1+ /lpf (RARE/1+); WBC URINE 50-100 /hpf (0-2)
[2024-03-23 23:31] VITALS: BP 122/95; PULSE 73; RESP 18; TEMP 97.2
[2024-03-24] MEDS ORDERED: IPRATROPIUM/ALBUTEROL 0.5-3(2.5)MG/3ML NEB HHN PRN
[2024-03-24] MEDS ORDERED: MAGNESIUM/ALUMINUM HYDROXIDE/SIMETHICONE 30ML UDC PO PRN
[2024-03-24] MEDS ORDERED: ONDANSETRON HCL 4MG/2ML INJ IV PRN
[2024-03-24] MEDS ORDERED: ACETAMINOPHEN 325MG TABLET PO PRN
[2024-03-24] MEDS: LORAZEPAM 2MG/ML INJ IV PRN (00:18)
[2024-03-24] MEDS: DEXT 5%/0.45% NACL 1000ML 1,000 ML IV SCH (00:28)
[2024-03-24] MEDS: PANTOPRAZOLE SODIUM 40 MG/VIAL IV SCH (00:30)
[2024-03-24] MEDS: CEFTRIAXONE 2GM/50ML 50 ML IV SCH (03:07)
[2024-03-24 06:35] LABS: BASOPHILS % 0.8 % (0.0-2.0); CHLORIDE 108 mEq/L (98-107); EOSINOPHILS % 3.5 % (0.0-5.0); HEMATOCRIT. 44.8 % (36.0-48.0); LYMPHOCYTES % 23.5 % (20.0-50.0); MEAN CORPUSCULAR HEMOGLOBIN 29.3 pg (28.0-32.0); MEAN CORPUSCULAR HGB CONC 33.5 g/dL (31.0-37.0); MEAN CORPUSCULAR VOLUME 87.4 fL (81.0-99.0); MEAN PLATELET VOLUME 7.8 fl (7.4-10.4); MONOCYTES % 8.3 % (2.0-8.0); NEUTROPHILS % 63.9 % (40.0-76.0); PLATELET 217 x1000/uL (130-400); POTASSIUM 4.2 mEq/L (3.5-5.1); RED BLOOD CELL COUNT 5.13 mill/uL (4.2-5.4); SODIUM 139 mEq/L (136-145); WHITE BLOOD COUNT 6.3 x1000/uL (4.5-11.0)
[2024-03-24 06:36] LABS: CALCIUM 8.9 mg/dL (8.7-10.4); CARBON DIOXIDE 25 mEq/L (21-32); PROTHROMBIN TIME 10.7 sec (9.6-11.0)
[2024-03-24 06:41] LABS: CREATININE 0.8 mg/dL (0.6-1.0); GLUCOSE 98 mg/dL (70-105); TRIGLYCERIDE 77 mg/dL (0-150); TROPONIN I HIGH SENSITIVITY 8 ng/L (3.0-34); UREA NITROGEN BLOOD 9 mg/dL (9-23)
[2024-03-24 06:42] LABS: LDL CHOLESTEROL 106 mg/dL (5-100)
[2024-03-24 06:43] LABS: CHOLESTEROL 176 mg/dL (<200); HDL CHOLESTEROL 56 mg/dL (>65)
[2024-03-24 06:45] LABS: T4 FREE 1.13 ng/dL (0.89-1.76); THYROID STIMULATING HORMONE 3.41 uIU/mL (0.55-4.78)
[2024-03-24 07:00] LABS: CREATINE KINASE MB FRACTION 1.6 ng/mL (0.5-3.6)
[2024-03-24 07:01] LABS: CREATINE KINASE 43 IU/L (34-145); PHOSPHORUS 2.5 mg/dL (2.5-4.9)
[2024-03-24 08:05] VITALS: BP 164/96; PULSE 91; RESP 20; TEMP 97.9
[2024-03-24] MEDS: ENOXAPARIN 30MG/0.3ML SYR SUBCUT SCH (09:08)
[2024-03-24 12:00] VITALS: BP 96/50; PULSE 61; RESP 20; TEMP 97
[2024-03-24 16:00] VITALS: BP 131/57; PULSE 59; RESP 16; TEMP 98.8
[2024-03-24 16:06] LABS: CREATINE KINASE MB FRACTION 1.4 ng/mL (0.5-3.6); TROPONIN I HIGH SENSITIVITY 7 ng/L (3.0-34)
[2024-03-24 16:07] LABS: CREATINE KINASE 35 IU/L (34-145)
[2024-03-24 16:10] LABS: FOLIC ACID (FOLATE) SERUM 12.35 ng/mL (>5.38); VITAMIN B12 SERUM 438 pg/mL (211-911)
[2024-03-24 20:00] VITALS: BP 114/75; PULSE 74; RESP 16; TEMP 97.4
[2024-03-24] MEDS ORDERED: PNEUMOCOCCAL 23-VAL P-SAC VAC 0.5 ML IM ONE (21:00)
[2024-03-25] VITALS: BP 128/46; PULSE 79; RESP 17; TEMP 97.1
[2024-03-25 04:00] VITALS: BP 142/79; PULSE 83; RESP 18; TEMP 97.2
[2024-03-25 08:00] VITALS: BP 128/53; PULSE 70; RESP 18; TEMP 98
[2024-03-25 12:00] VITALS: BP 126/51; PULSE 71; RESP 18; TEMP 98
[2024-03-25 20:00] VITALS: BP 115/50; PULSE 63; RESP 18; TEMP 96.9
[2024-03-26 04:00] VITALS: BP 131/56; PULSE 64; RESP 16; TEMP 97.6
[2024-03-26 12:00] VITALS: BP 142/64; PULSE 75; RESP 20; TEMP 92.1
[2024-03-26 16:00] VITALS: BP 115/49; PULSE 60; RESP 19; TEMP 97.9
[2024-03-26 20:00] VITALS: BP 136/76; PULSE 75; RESP 19; TEMP 98.1
[2024-03-27] VITALS: BP 130/73; PULSE 73; RESP 19; TEMP 97.8
[2024-03-27 04:00] VITALS: BP 122/68; PULSE 75; RESP 20; TEMP 98.2
[2024-03-27 07:33] LABS: BASOPHILS % 0.5 % (0.0-2.0); EOSINOPHILS % 2.3 % (0.0-5.0); HEMATOCRIT. 39.5 % (36.0-48.0); HEMOGLOBIN. 13.4 g/dL (12.0-16.0); LYMPHOCYTES % 22.2 % (20.0-50.0); MEAN CORPUSCULAR HEMOGLOBIN 29.8 pg (28.0-32.0); MEAN CORPUSCULAR VOLUME 87.7 fL (81.0-99.0); MEAN PLATELET VOLUME 8.1 fl (7.4-10.4); MONOCYTES % 8.3 % (2.0-8.0); NEUTROPHILS % 66.7 % (40.0-76.0); PLATELET 244 x1000/uL (130-400); RED CELL DISTRIBUTION WIDTH 13.7 % (11.6-14.6)
[2024-03-27 08:00] VITALS: BP 138/80; PULSE 94; RESP 19; TEMP 97.7
[2024-03-27 08:14] LABS: CHLORIDE 108 mEq/L (98-107); SODIUM 139 mEq/L (136-145)
[2024-03-27 08:16] LABS: CALCIUM 8.8 mg/dL (8.7-10.4)
[2024-03-27 08:20] LABS: CREATININE 0.7 mg/dL (0.6-1.0); GLUCOSE 88 mg/dL (70-105); UREA NITROGEN BLOOD 13 mg/dL (9-23)
[2024-03-27 08:25] LABS: CARBON DIOXIDE 24 mEq/L (21-32)
[2024-03-27] MEDS: FAMOTIDINE 20MG/2ML VIAL IV SCH (10:48)
[2024-03-27 12:00] VITALS: BP 141/61; RESP 18; TEMP 97.4
[2024-03-27 16:00] VITALS: BP 139/61; PULSE 63; RESP 17; TEMP 98
[2024-03-27 20:00] VITALS: BP 117/48; PULSE 72; RESP 20; TEMP 97.6
[2024-03-28 04:00] VITALS: BP 152/64; PULSE 71; RESP 18; TEMP 98.2
[2024-03-28 08:00] VITALS: BP 111/78; PULSE 73; RESP 18; TEMP 98.8
[2024-03-28] MEDS: MULTIVITAMINS,THER W-MINERALS TABLET PO SCH (08:36)
[2024-03-28 12:00] VITALS: BP 113/45; PULSE 60; RESP 18; TEMP 98.6
[2024-03-28 16:00] VITALS: BP 114/44; PULSE 63; RESP 18; TEMP 97.9
[2024-03-28 20:00] VITALS: BP 112/42; PULSE 69; RESP 18; TEMP 97.9
[2024-03-29] VITALS: BP 111/51; PULSE 71; RESP 18; TEMP 97.9
[2024-03-29 04:00] VITALS: BP 147/57; PULSE 70; RESP 18; TEMP 97.9
[2024-03-29 08:00] VITALS: BP 146/56; PULSE 62; RESP 18; TEMP 97.9
[2024-03-29] MEDS: FAMOTIDINE 20MG TABLET PO SCH (08:35)
[2024-03-29 12:00] VITALS: BP 103/50; PULSE 74; RESP 19; TEMP 97.5
[2024-03-29 16:00] VITALS: BP 120/67; PULSE 74; RESP 19; TEMP 98.5
[2024-03-29 20:00] VITALS: BP 89/67; PULSE 74; RESP 18; TEMP 98.2
[2024-03-30 04:00] VITALS: BP 131/56; PULSE 97; TEMP 97.7
[2024-03-30 08:00] VITALS: BP 136/63; PULSE 71; RESP 18; TEMP 98
[2024-03-30 12:00] VITALS: BP 124/58; PULSE 72; RESP 18; TEMP 97.7
[2024-03-30 16:00] VITALS: BP 116/56; PULSE 86; RESP 18; TEMP 97.8
[2024-03-30 20:00] VITALS: BP 99/40; PULSE 75; RESP 18; TEMP 98.1
[2024-03-31] VITALS: BP 111/44; PULSE 95; RESP 18; TEMP 98.5
[2024-03-31 03:40] VITALS: BP 111/44; RESP 18
[2024-03-31 04:00] VITALS: BP 115/67; RESP 17; TEMP 98
[2024-03-31 08:00] VITALS: BP 127/77; PULSE 60; RESP 16; TEMP 97
[2024-03-31 10:48] VITALS: BP 127/53; PULSE 60; TEMP 97; O2SAT 100
[2024-03-31 12:00] VITALS: BP 115/56; PULSE 70; RESP 18; TEMP 96.9
== END 2024-03-31 16:15 | disposition home health service (06) | DRG 871 ==
LOC: ER 16:30 → 6WST 18:20 → EDBEDREQ 18:21 → EDBEDREQTM 18:21 → ER 20:10
PROVIDERS: ADMIT Internal Medicine; ATTEND Internal Medicine
DX: A41.9 Sepsis, unspecified organism (principal); G92.8 Other toxic encephalopathy; N39.0 Urinary tract infection, site not specified; F03.93 Unspecified dementia, unspecified severity, with mood disturbance; Z68.1 Body mass index [BMI] 19.9 or less, adult; R65.20 Severe sepsis without septic shock; B96.20 Unspecified Escherichia coli [E. coli] as the cause of diseases classified elsewhere; R62.7 Adult failure to thrive; L89.611 Pressure ulcer of right heel, stage 1; L89.621 Pressure ulcer of left heel, stage 1; B37.9 Candidiasis, unspecified; F32.A Depression, unspecified; Z60.8 Other problems related to social environment; Z74.01 Bed confinement status
CPT/HCPCS: 36415; 71045; 80048; 80053; 80061; 81003; 82550; 82553; 82607; 82746; 83605; 83735; 84100; 84145; 84439; 84443; 84484; 85025; 87077; 87186; 90732; 93005; 93970; 97162; 97166; 99285; C1893; C9113; J0696; J1650; J2060; J3490; J7030